=== PATIENT | male | born 1980 | race African-American/Black ===

== ENCOUNTER 2017-02-24 08:47 | Emergency (ER) | payer OTHER ==
[~2017-02-24] VITALS: Ht 180.3 cm; Wt 77.3 kg
[2017-02-24 08:48] VITALS: BP 145/76
[2017-02-24] MEDS ORDERED: BACT800T5 PO (10:22)
[2017-02-24] MEDS ORDERED: ROBA500T PO (10:22)
[2017-02-24] MEDS ORDERED: NAPR500T3 PO (10:22)
--- NOTE | 2017-02-24 10:29 | REP ---
Lumbar spine complete: 02/24/2017. Clinical history: Back pain. Findings: There were no prior studies. Five views show slight loss of the normal lordosis. The vertebral body heights and disc space heights are intact throughout. There is no spondylolysis or spondylolisthesis. No scoliosis on the AP view. Pedicles, spinous and transverse processes, lower thoracic vertebral levels and ribs along with the sacrum, SI joints and sacral foramina intact. Impression: 1. Slight loss of lordosis of the otherwise normal lumbar spine may reflect spasm. No other findings. Signed by Carlos Squires MD 02/24/2017 08:29 P
== END 2017-02-24 10:32 | disposition home or self-care (01) ==
LOC: M ED 08:47
DX: L02.411 Cutaneous abscess of right axilla (principal); M54.5 Low back pain; G89.29 Other chronic pain; M62.830 Muscle spasm of back; M40.56 Lordosis, unspecified, lumbar region; F17.210 Nicotine dependence, cigarettes, uncomplicated; Z98.890 Other specified postprocedural states; Z87.2 Personal history of diseases of the skin and subcutaneous tissue

== ENCOUNTER → 2017-08-18 | Outpatient (CLI) | payer MEDICAID | LOC: M OUTALCOH 13:04 | DX: F12.20 Cannabis dependence, uncomplicated (principal) ==

== ENCOUNTER → 2017-10-07 | Outpatient (CLI) | payer MEDICAID | LOC: M OUTALCOH 09:33 | DX: F12.20 Cannabis dependence, uncomplicated (principal) ==

== ENCOUNTER → 2017-10-18 | Outpatient (RCR) | payer MEDICAID | LOC: M OUTALCOH 10:41 | DX: F12.20 Cannabis dependence, uncomplicated (principal); F17.200 Nicotine dependence, unspecified, uncomplicated ==

== ENCOUNTER 2017-11-15 18:18 | Emergency (ER) | payer OTHER, MEDICAID ==
[2017-11-15] MEDS: CLINDAMYCIN 150 MG CAP PO (20:05)
== END 2017-11-15 20:08 | disposition home or self-care (01) ==
LOC: M ED 18:18
DX: L02.412 Cutaneous abscess of left axilla (principal); L02.211 Cutaneous abscess of abdominal wall; F41.9 Anxiety disorder, unspecified; J30.81 Allergic rhinitis due to animal (cat) (dog) hair and dander; J30.89 Other allergic rhinitis; F17.210 Nicotine dependence, cigarettes, uncomplicated
CPT/HCPCS: 99282

== ENCOUNTER 2018-02-07 12:41 | Emergency (ER) | payer OTHER | END 2018-02-07 13:46 | disposition home or self-care (01) | LOC: M ED 12:41 | DX: B35.3 Tinea pedis (principal); B36.0 Pityriasis versicolor; L73.2 Hidradenitis suppurativa; F17.200 Nicotine dependence, unspecified, uncomplicated; J30.81 Allergic rhinitis due to animal (cat) (dog) hair and dander; J30.1 Allergic rhinitis due to pollen | CPT/HCPCS: 99282 ==

== ENCOUNTER 2018-04-07 13:14 | Emergency (ER) | payer OTHER ==
[~2018-04-07] VITALS: Ht 177.8 cm; Wt 32.9 kg
[~2018-04-07 13:14] MED LIST: BACT800T5 PO; CLEO300C2 PO; DOXY100C37 PO; LOTR1CRE12 TOP; NAPR-885 PO; ROBA500T PO
[2018-04-07 13:15] VITALS: BP 131/80
--- NOTE | 2018-04-07 14:31 | ED PDOC ---
Post-Departure Follow-Up ASSIGNED THIS PT TO MYSELF. BEFORE GETTING IN THE EXAM ROOM TO SEE THE PT, HE WA LKED OUT WITHOUT BEING SEEN BY A PROVIDER. THIS FLOOR LAYER TILE DID NOT SEE OR EVALUATE THIS PT. DAREN JONES PA-C Apr 07, 2018 14:31
== END 2018-04-07 14:39 | disposition left against medical advice (07) ==
LOC: M ED 13:14
DX: Z53.29 Procedure and treatment not carried out because of patient's decision for other reasons (principal)

== ENCOUNTER 2018-04-28 18:44 | Emergency (ER) | payer OTHER ==
[~2018-04-28] VITALS: Ht 177.8 cm; Wt 68.2 kg
[2018-04-28] MEDS ORDERED: NS 1,000 ML IV ONE (19:30)
[2018-04-28 19:51] LABS: BASO % 0.2 % (0.0-1.0); EOS % 0.9 % (0.0-3.0); HEMATOCRIT 40.2 % (42.0-52.0); HEMOGLOBIN 12.8 g/dl (13.5-17.5); LYMPH # 1.7 10^3/uL (1.5-4.5); LYMPH % 38.7 % (24.0-44.0); MEAN CORPUSCULAR HEMOGLOBIN 21.9 pg (27.0-33.0); MEAN CORPUSCULAR HGB CONC 31.8 g/dl (32.0-36.5); MEAN CORPUSCULAR VOLUME 68.8 fl (80.0-96.0); MONO # 0.4 10^3/uL (0.0-0.8); MONO % 9.6 % (0.0-5.0); NEUTROPHILS # 2.3 10^3/uL (1.8-7.7); NEUTROPHILS % 50.4 % (36.0-66.0); PLATELET COUNT, AUTOMATED 204 10^3/uL (150-450); RED BLOOD COUNT 5.84 10^6/uL (4.30-6.10); WHITE BLOOD COUNT 4.5 10^3/uL (4.0-10.0)
[2018-04-28 20:08] LABS: INR 1.06; PARTIAL THROMBOPLASTIN TIME 33.2 SECONDS (25.4-37.6); PROTHROMBIN TIME 13.9 SECONDS (12.1-14.4)
[2018-04-28 20:18] LABS: ALBUMIN 4.3 GM/DL (3.2-5.2); ALT/SGPT 27 U/L (12-78); BILIRUBIN,TOTAL 0.3 MG/DL (0.2-1.0); BLOOD UREA NITROGEN 10 MG/DL (7-18); CALCIUM LEVEL 8.8 MG/DL (8.5-10.1); CARBON DIOXIDE LEVEL 29 MEQ/L (21-32); CHLORIDE LEVEL 108 MEQ/L (98-107); CREATININE FOR GFR 0.94 MG/DL (0.70-1.30); GLOMERULAR FILTRATION RATE > 60.0 (>60); GLUCOSE, FASTING 78 MG/DL (70-100); POTASSIUM SERUM 3.9 MEQ/L (3.5-5.1); SODIUM LEVEL 141 MEQ/L (136-145); TOTAL PROTEIN 8.1 GM/DL (6.4-8.2)
[2018-04-28] MEDS ORDERED: ISOVUE-370 76% 100ML VIAL (Q9967) As Ordered ONE (20:21)
--- NOTE | 2018-04-28 20:59 | REPVR ---
EXAM: CT Abdomen and Pelvis With Contrast EXAM DATE/TIME: 04/28/2018 8:26 PM CLINICAL HISTORY: 38 years old, male; Signs and symptoms; Other: Hematuria; Additional info: Case hematuria, +inguinal lymphnodes TECHNIQUE: Axial computed tomography images of the abdomen and pelvis with intravenous contrast. All CT scans at this facility use at least one of these dose optimization techniques: automated exposure control; mA and/or kV adjustment per patient size (includes targeted exams where dose is matched to clinical indication); or iterative reconstruction. Coronal and sagittal reformatted images were created and reviewed. CONTRAST: 100 ml of ISOVUE 370 administered intravenously. COMPARISON: CR Spine. Lumbosacral, complete 02/24/2017 10:00 AM FINDINGS: Lower thorax: No acute findings. ABDOMEN: Liver: There is a diffuse decrease in hepatic parenchymal density, consistent with fatty infiltration. Gallbladder and bile ducts: The gallbladder is incompletely distended. This is most likely related to incomplete fasting. Clinical correlation to exclude gallbladder pathology suggested. Pancreas: Normal. No ductal dilation. Spleen: Normal. No splenomegaly. Adrenals: Normal. No mass. Kidneys and ureters: Normal. No hydronephrosis. Stomach and bowel: Normal. No obstruction. No mucosal thickening. Appendix: No evidence of appendicitis. PELVIS: Bladder: Unremarkable as visualized. Reproductive: The prostate gland demonstrates moderate hyperplasia. ABDOMEN and PELVIS: Intraperitoneal space: Normal. No free air. No significant fluid collection. Bones/joints: No acute fracture. No dislocation. Soft tissues: Unremarkable. Vasculature: The aorta demonstrates mild atherosclerotic calcification. Lymph nodes: Normal. No enlarged lymph nodes. IMPRESSION: 1. There is a diffuse decrease in hepatic parenchymal density, consistent with fatty infiltration. 2. The gallbladder is incompletely distended. This is most likely related to incomplete fasting. Clinical correlation to exclude gallbladder pathology suggested. 3. Moderate prostatic hyperplasia. 4. No urinary tract calculi or mass. Electronically signed by: Garo Heredia On 04/28/2018 20:59:05 PM
[2018-04-28] MEDS ORDERED: BACT800T5 PO (21:13)
[2018-04-28] MEDS ORDERED: BACTRIM 160MG/800MG DS TAB PO ONE (21:15)
[2018-04-28] MEDS ORDERED: CIPROFLOXACIN 500 MG TAB PO ONE (21:15)
[2018-04-28 21:20] VITALS: BP 114/76
[2018-04-28] MEDS ORDERED: PYRI1TAB5 PO (21:26)
[2018-04-28] MEDS ORDERED: CLOB0.0526 TOP (21:26)
[2018-04-28] MEDS ORDERED: PHENAZOPYRIDINE 100 MG TAB PO ONE (21:30)
== END 2018-04-28 21:35 | disposition home or self-care (01) ==
LOC: M ED 18:44
DX: N39.0 Urinary tract infection, site not specified (principal); R31.9 Hematuria, unspecified; N40.1 Benign prostatic hyperplasia with lower urinary tract symptoms; L02.214 Cutaneous abscess of groin; F41.9 Anxiety disorder, unspecified; F32.9 Major depressive disorder, single episode, unspecified
CPT/HCPCS: 74177; 80053; 81001; 85025; 85610; 85730; 86850; 86900; 86901; 99284; Q9967

== ENCOUNTER 2018-05-05 21:20 | Emergency (ER) | payer OTHER ==
[~2018-05-05] VITALS: Ht 177.8 cm; Wt 77.3 kg
[2018-05-05 21:20] VITALS: BP 139/78
[~2018-05-05 21:20] MED LIST changes: +CLOB0.0526 TOP; +PYRI1TAB5 PO
[2018-05-05] MEDS ORDERED: NORCO 5/325MG TABLET (BULK FOR ED) PO ONE (22:15)
[2018-05-05] MEDS ORDERED: BACTRIM 160MG/800MG DS TAB PO ONE (22:15)
[2018-05-05] MEDS ORDERED: BACT800T5 PO (22:18)
[2018-05-05] MEDS ORDERED: IBUP-1022 PO (22:18)
== END 2018-05-05 22:37 | disposition home or self-care (01) ==
LOC: M ED 21:20
DX: L02.411 Cutaneous abscess of right axilla (principal)

== ENCOUNTER 2018-08-21 08:55 | Emergency (ER) | payer OTHER ==
[~2018-08-21] VITALS: Ht 177.8 cm; Wt 72.4 kg
[~2018-08-21 08:55] MED LIST changes: +IBUP-1022 PO
[2018-08-21 09:58] LABS: BASO % 0.2 % (0.0-1.0); EOS # 0.1 10^3/uL (0.0-0.50); EOS % 1.1 % (0.0-3.0); HEMATOCRIT 38.8 % (42.0-52.0); HEMOGLOBIN 12.4 g/dl (13.5-17.5); LYMPH % 43.1 % (24.0-44.0); MEAN CORPUSCULAR HEMOGLOBIN 22.7 pg (27.0-33.0); MEAN CORPUSCULAR VOLUME 70.9 fl (80.0-96.0); MONO # 0.5 10^3/uL (0.0-0.8); NEUTROPHILS # 2.1 10^3/uL (1.8-7.7); NEUTROPHILS % 44.4 % (36.0-66.0); PLATELET COUNT, AUTOMATED 182 10^3/uL (150-450); RED BLOOD COUNT 5.47 10^6/uL (4.30-6.10); WHITE BLOOD COUNT 4.6 10^3/uL (4.0-10.0)
[2018-08-21 10:04] LABS: INR 1.17; PROTHROMBIN TIME 15.1 SECONDS (12.1-14.4)
[2018-08-21 10:05] LABS: PARTIAL THROMBOPLASTIN TIME 34.8 SECONDS (25.4-37.6)
[2018-08-21 10:15] LABS: ALBUMIN 4.2 GM/DL (3.2-5.2); ALT/SGPT 25 U/L (12-78); BILIRUBIN,DIRECT < 0.1 MG/DL (0.0-0.2); BILIRUBIN,TOTAL 0.2 MG/DL (0.2-1.0); BLOOD UREA NITROGEN 11 MG/DL (7-18); CALCIUM LEVEL 9.3 MG/DL (8.5-10.1); CARBON DIOXIDE LEVEL 26 MEQ/L (21-32); CHLORIDE LEVEL 107 MEQ/L (98-107); CREATININE FOR GFR 0.97 MG/DL (0.70-1.30); GLOMERULAR FILTRATION RATE > 60.0 (>60); GLUCOSE, FASTING 82 MG/DL (70-100); LIPASE 61 U/L (73-393); POTASSIUM SERUM 3.8 MEQ/L (3.5-5.1); SODIUM LEVEL 141 MEQ/L (136-145); TOTAL PROTEIN 7.5 GM/DL (6.4-8.2)
[2018-08-21 10:36] LABS: HEPATITIS B SURFACE ANTIGEN NEGATIVE (NEGATIVE)
[2018-08-21 11:03] LABS: HEPATITIS B CORE ANTIBODY IGM NEGATIVE (NEGATIVE); HEPATITIS C VIRUS ABY INDEX < 0.0 INDEX (<0.8)
[2018-08-21 11:06] LABS: HEPATITIS A ANTIBODY IGM NEGATIVE (NEGATIVE)
--- NOTE | 2018-08-21 11:08 | REP ---
REASON FOR EXAM: Diarrhea. PRIORS: None. Multiple ultrasonographic images of the liver show the hepatic parenchyma to be within normal limits. There are no masses. There is no intrahepatic or extrahepatic or ductal dilatation. The common bile duct measures 3 mm. Multiple ultrasonographic images of the gallbladder show the gallbladder to have a normal appearance. The imaged portion of the pancreas and right kidney were normal. IMPRESSION: Right upper quadrant ultrasound is within normal limits. Electronically Signed by Anselmo East DO 08/21/2018 12:57 P
[2018-08-21] MEDS ORDERED: BACT800T5 PO (11:28)
[2018-08-21] MEDS ORDERED: PRED20TA PO (11:28)
[2018-08-21 11:37] VITALS: BP 118/69
== END 2018-08-21 11:38 | disposition home or self-care (01) ==
LOC: M ED 08:55
DX: R19.7 Diarrhea, unspecified (principal); L29.9 Pruritus, unspecified; L02.412 Cutaneous abscess of left axilla; F41.9 Anxiety disorder, unspecified; F32.9 Major depressive disorder, single episode, unspecified; Z72.0 Tobacco use; J30.81 Allergic rhinitis due to animal (cat) (dog) hair and dander; J30.2 Other seasonal allergic rhinitis

== ENCOUNTER 2018-09-12 07:27 | Emergency (ER) | payer OTHER ==
[~2018-09-12] VITALS: Ht 177.8 cm; Wt 70.8 kg
[~2018-09-12 07:27] MED LIST changes: +PRED20TA PO
[2018-09-12 08:49] LABS: BASO % 0.2 % (0.0-1.0); EOS # 0.1 10^3/uL (0.0-0.50); EOS % 1.4 % (0.0-3.0); HEMATOCRIT 37.1 % (42.0-52.0); HEMOGLOBIN 12.1 g/dl (13.5-17.5); LYMPH # 1.4 10^3/uL (1.5-4.5); LYMPH % 27.5 % (24.0-44.0); MEAN CORPUSCULAR HEMOGLOBIN 22.4 pg (27.0-33.0); MEAN CORPUSCULAR HGB CONC 32.6 g/dl (32.0-36.5); MEAN CORPUSCULAR VOLUME 68.8 fl (80.0-96.0); MONO # 0.5 10^3/uL (0.0-0.8); MONO % 10.3 % (0.0-5.0); NEUTROPHILS % 60.4 % (36.0-66.0); PLATELET COUNT, AUTOMATED 181 10^3/uL (150-450); RED BLOOD COUNT 5.39 10^6/uL (4.30-6.10)
[2018-09-12 09:28] LABS: ALBUMIN 3.7 GM/DL (3.2-5.2); ALT/SGPT 26 U/L (12-78); BILIRUBIN,DIRECT 0.1 MG/DL (0.0-0.2); BILIRUBIN,TOTAL 0.2 MG/DL (0.2-1.0); BLOOD UREA NITROGEN 11 MG/DL (7-18); CALCIUM LEVEL 8.9 MG/DL (8.5-10.1); CARBON DIOXIDE LEVEL 26 MEQ/L (21-32); CHLORIDE LEVEL 108 MEQ/L (98-107); CREATININE FOR GFR 0.98 MG/DL (0.70-1.30); GLOMERULAR FILTRATION RATE > 60.0 (>60); GLUCOSE, FASTING 79 MG/DL (70-100); LIPASE 71 U/L (73-393); POTASSIUM SERUM 4.2 MEQ/L (3.5-5.1); SODIUM LEVEL 139 MEQ/L (136-145); TOTAL PROTEIN 7.2 GM/DL (6.4-8.2)
[2018-09-12] MEDS ORDERED: PRED20TA PO (09:55)
[2018-09-12] MEDS ORDERED: BACT800T5 PO (09:55)
[2018-09-12 10:10] VITALS: BP 122/68
== END 2018-09-12 10:13 | disposition home or self-care (01) ==
LOC: M ED 07:27
DX: L73.2 Hidradenitis suppurativa (principal); R19.7 Diarrhea, unspecified; F17.210 Nicotine dependence, cigarettes, uncomplicated

== ENCOUNTER → 2018-09-15 | Outpatient (REF) | payer OTHER ==
[2018-09-15 18:07] LABS: CHOLESTEROL LEVEL 99 MG/DL (<200); CHOLESTEROL RISK RATIO 2.538 (<5); FERRITIN 75 NG/ML (26-388); HDL CHOLESTEROL 39 MG/DL (>40); IRON (FE) 73 UG/DL (65-175); LDL CHOLESTEROL 47 MG/DL (<100); NON-HDL-C 60 MG/DL; PERCENT SATURATION 24.7 % (19.7-50.0); TOTAL IRON BINDING CAPACITY 296 UG/DL (250-450); TRIGLYCERIDES LEVEL 63 MG/DL (<150)
[2018-09-15 18:45] LABS: SICKLE CELL SCREEN POSITIVE (NEGATIVE)
[2018-09-15 18:48] LABS: HIV 1&2 SCREEN CENTAUR NEGATIVE (NEGATIVE)
[2018-09-15 20:51] LABS: CHLAMYDIA DNA AMPLIFICATION NEGATIVE (NEGATIVE); GC DNA AMPLIFICATION NEGATIVE (NEGATIVE)
[2018-09-19 08:07] LABS: RPR Non Reactive (Non Reactive)
== END ==
LOC: M SFHCPLAZ 15:15
PROVIDERS: ATTEND Nurse Practitioner Family
DX: D64.9 Anemia, unspecified (principal); Z11.3 Encounter for screening for infections with a predominantly sexual mode of transmission; Z13.228 Encounter for screening for other metabolic disorders

== ENCOUNTER 2019-01-25 21:55 | Emergency (ER) | payer OTHER ==
[~2019-01-25] VITALS: Ht 177.8 cm; Wt 79.1 kg
[2019-01-25] MEDS ORDERED: AMOX500C PO (22:01)
[2019-01-25] MEDS ORDERED: IBUP1TAB7 PO (22:02)
[2019-01-25] MEDS ORDERED: LIDOCAINE W/EPINEPHRINE 1% 20ML VIAL SC ONE (23:00)
[2019-01-25] MEDS ORDERED: BACT800T5 PO (23:50)
[2019-01-26] MEDS ORDERED: IBUP80TA PO (00:01)
[2019-01-26 00:08] LABS: BASO % 0.2 % (0.0-1.0); EOS # 0.1 10^3/uL (0.0-0.5); EOS % 1.4 % (0.0-3.0); HEMATOCRIT 33.6 % (42.0-52.0); HEMOGLOBIN 10.8 g/dl (13.5-17.5); LYMPH # 1.4 10^3/uL (1.5-5.0); LYMPH % 23.5 % (24.0-44.0); MEAN CORPUSCULAR HEMOGLOBIN 22.5 pg (27.0-33.0); MEAN CORPUSCULAR HGB CONC 32.1 g/dl (32.0-36.5); MEAN CORPUSCULAR VOLUME 69.9 fl (80.0-96.0); MONO # 0.6 10^3/uL (0.0-0.8); MONO % 10.7 % (0.0-5.0); NEUTROPHILS # 3.8 10^3/uL (1.5-8.5); NEUTROPHILS % 63.7 % (36.0-66.0); PLATELET COUNT, AUTOMATED 186 10^3/uL (150-450); RED BLOOD COUNT 4.81 10^6/uL (4.30-6.10); WHITE BLOOD COUNT 5.9 10^3/uL (4.0-10.0)
[2019-01-26 00:15] VITALS: BP 132/85
== END 2019-01-26 00:35 | disposition home or self-care (01) ==
LOC: M ED 21:55
DX: L02.412 Cutaneous abscess of left axilla (principal)

== ENCOUNTER 2019-03-16 22:25 | Emergency (ER) | payer OTHER ==
[~2019-03-16] VITALS: Ht 180.3 cm; Wt 76.5 kg
[~2019-03-16 22:25] MED LIST changes: +AMOX500C PO; +IBUP1TAB7 PO; +IBUP80TA PO
[2019-03-17] MEDS ORDERED: ACETAMINOPHEN TAB 650MG DOSE (2X325MG) PO ONE (00:15)
[2019-03-17 00:33] LABS: BASO % 0.1 % (0.0-1.0); EOS % 0.3 % (0.0-3.0); HEMATOCRIT 40.6 % (42.0-52.0); HEMOGLOBIN 12.7 g/dl (13.5-17.5); LYMPH # 1.5 10^3/uL (1.5-5.0); MEAN CORPUSCULAR HEMOGLOBIN 21.9 pg (27.0-33.0); MEAN CORPUSCULAR HGB CONC 31.3 g/dl (32.0-36.5); MEAN CORPUSCULAR VOLUME 69.9 fl (80.0-96.0); MONO # 0.8 10^3/uL (0.0-0.8); NEUTROPHILS % 75.2 % (36.0-66.0); PLATELET COUNT, AUTOMATED 226 10^3/uL (150-450); RED BLOOD COUNT 5.81 10^6/uL (4.30-6.10); WHITE BLOOD COUNT 9.3 10^3/uL (4.0-10.0)
[2019-03-17] MEDS ORDERED: ISOVUE-370 76% 100ML VIAL (Q9967) As Ordered ONE (00:37)
[2019-03-17 00:54] LABS: ERYTHROCYTE SEDIMENTATION RATE 18 mm/hr (0-15)
--- NOTE | 2019-03-17 01:20 | REPVR ---
PROCEDURE INFORMATION: Exam: CT Pelvis With Contrast Exam date and time: 03/17/2019 12:03 AM Age: 39 years old Clinical indication: Pelvic pain; Additional info: R/O perirectal abscess TECHNIQUE: Imaging protocol: Computed tomography images of the pelvis with intravenous contrast. Radiation optimization: All CT scans at this facility use at least one of these dose optimization techniques: automated exposure control; mA and/or kV adjustment per patient size (includes targeted exams where dose is matched to clinical indication); or iterative reconstruction. Contrast material: ISO; Contrast volume: 100 ml; Contrast route: AC COMPARISON: CT ABD/PEL W/IV CONTRAST ONLY 04/28/2018 8:19 PM FINDINGS: Immediately adjacent to the left gluteal fold posteriorly, there is a peripherally enhancing ovoid fluid collection measuring 5 cm AP, 2 cm transverse and 4 cm craniocaudal consistent with a superficial perirectal abscess. No extension into the ischiorectal fossa. Mild overlying subcutaneous edema and skin thickening. Gluteal muscular structures show no involvement. Normal caliber appendix is identified, with no adjacent inflammation. Urinary bladder appears normal. Small nonspecific inguinal lymph nodes are present. Bony structures show no acute fracture or destructive process. Incidental, benign bone island in the medial osseous left ilium, stable compared to lumbar spine radiographs from February 2017, as expected IMPRESSION: Left gluteal fold superficial perirectal abscess measuring 5 x 2 x 4 cm Electronically signed by: Gavino Soriano On 03/17/2019 01:19:41 AM
[2019-03-17 02:06] VITALS: BP 124/75
[2019-03-17] MEDS ORDERED: LIDOCAINE W/EPINEPHRINE 1% 20ML VIAL SC ONE (02:30)
[2019-03-17] MEDS ORDERED: IBUP80TA PO (03:00)
[2019-03-17] MEDS ORDERED: BACT800T5 PO (03:00)
== END 2019-03-17 03:21 | disposition home or self-care (01) ==
LOC: M ED 22:25
DX: L02.31 Cutaneous abscess of buttock (principal); A49.02 Methicillin resistant Staphylococcus aureus infection, unspecified site; F17.210 Nicotine dependence, cigarettes, uncomplicated
CPT/HCPCS: 10060; 36415; 72193; 80047; 85025; 85652; 86140; 87040; 87070; 87077; 87186; 87205; 99283; Q9967

== ENCOUNTER 2020-11-19 02:30 | Emergency (ER) | payer OTHER ==
[~2020-11-19] VITALS: Ht 177.8 cm; Wt 71.8 kg
[~2020-11-19 02:30] MED LIST changes: +DOXY-443 PO; -DOXY100C37 PO
[2020-11-19] MEDS ORDERED: IBUP200C25 PO (02:59)
[2020-11-19 06:01] VITALS: BP 141/87
[2020-11-19 07:11] LABS: HEMATOCRIT 36.7 % (42.0-52.0); HEMOGLOBIN 11.9 g/dl (13.5-17.5); MEAN CORPUSCULAR HEMOGLOBIN 22.3 pg (27.0-33.0); MEAN CORPUSCULAR HGB CONC 32.4 g/dl (32.0-36.5); MEAN CORPUSCULAR VOLUME 68.7 fl (80.0-96.0); PLATELET COUNT, AUTOMATED 197 10^3/uL (150-450); RED BLOOD COUNT 5.34 10^6/uL (4.30-6.10); WHITE BLOOD COUNT 5.2 10^3/uL (4.0-10.0)
[2020-11-19 07:37] LABS: ATYPICAL LYMPH 2 % (0-5); EOSINOPHILS 1 % (0-3); LYMPHOCYTES 32 % (16-44); MONOCYTES 8 % (0-5); NEUTROPHILS 57 % (28-66)
[2020-11-19 07:38] LABS: PLATELET ESTIMATE NORMAL (NORMAL)
[2020-11-19 07:39] LABS: OVALOCYTES 1+
[2020-11-19 07:52] LABS: ALBUMIN 3.9 GM/DL (3.2-5.2); ALT/SGPT 29 U/L (12-78); BILIRUBIN,DIRECT 0.2 MG/DL (0.0-0.2); BILIRUBIN,TOTAL 0.4 MG/DL (0.2-1.0); BLOOD UREA NITROGEN 8 MG/DL (7-18); CALCIUM LEVEL 9.2 MG/DL (8.5-10.1); CARBON DIOXIDE LEVEL 25 MEQ/L (21-32); CHLORIDE LEVEL 109 MEQ/L (98-107); CK-MB VALUE MASS 1.8 NG/ML (<3.6); CPK CREATINE PHOSPHOKINASE 131 U/L (39-308); CREATININE FOR GFR 0.78 MG/DL (0.70-1.30); FREE T4 1.46 NG/DL (0.76-1.46); GLOMERULAR FILTRATION RATE > 60.0 (>60); GLUCOSE, FASTING 72 MG/DL (70-100); LIPASE 94 U/L (73-393); MB/CK RELATIVE INDEX 1.37 (< OR =4); SODIUM LEVEL 140 MEQ/L (136-145); TOTAL PROTEIN 7.2 GM/DL (6.4-8.2); TROPONIN I < 0.02 NG/ML (< 0.10)
[2020-11-19 08:34] LABS: ERYTHROCYTE SEDIMENTATION RATE 6 mm/hr (0-15)
== END 2020-11-19 07:29 | disposition left against medical advice (07) ==
LOC: M ED 02:30
DX: R07.9 Chest pain, unspecified (principal); Z53.9 Procedure and treatment not carried out, unspecified reason; F41.9 Anxiety disorder, unspecified; F32.9 Major depressive disorder, single episode, unspecified; Z87.891 Personal history of nicotine dependence; J30.81 Allergic rhinitis due to animal (cat) (dog) hair and dander; J30.89 Other allergic rhinitis

== ENCOUNTER → 2021-11-30 | Outpatient (REF) | payer OTHER ==
[~2021-11-30] MED LIST changes: +IBUP200C25 PO
== END ==
LOC: M LAB REF 16:34
PROVIDERS: ATTEND Nurse Practitioner Family
DX: J02.9 Acute pharyngitis, unspecified (principal)

== ENCOUNTER → 2022-11-19 | Outpatient (CLI) | payer OTHER | LOC: M RAD 17:18 | PROVIDERS: ATTEND Physician Assistant | DX: M25.571 Pain in right ankle and joints of right foot (principal) ==

== ENCOUNTER 2023-01-18 20:40 | Emergency (ER) | payer OTHER ==
[~2023-01-18] VITALS: Ht 179.1 cm; Wt 76.7 kg
[2023-01-18] MEDS ORDERED: FLUORESCEIN OPHTH 1MG STRIP OS ONE (22:15)
[2023-01-18] MEDS ORDERED: TETRACAINE 0.5% OPHTH SOLN 4ML OS ONE (22:15)
[2023-01-18 22:57] VITALS: BP 116/76; TEMP 98.2; O2SAT 96
[2023-01-18] MEDS ORDERED: CIPR0.3S37 OS (23:05)
[2023-01-18] MEDS ORDERED: CIPROFLOXACIN 0.3% OPHTH SOLN 2.5ML OS ONE (23:05)
[2023-01-18] MEDS ORDERED: IBUPROFEN 600MG TAB PO ONE (23:35)
== END 2023-01-19 00:24 | disposition home or self-care (01) ==
LOC: M ED 20:40
DX: S05.02XA Injury of conjunctiva and corneal abrasion without foreign body, left eye, initial encounter (principal); W22.8XXA Striking against or struck by other objects, initial encounter; Y92.009 Unspecified place in unspecified non-institutional (private) residence as the place of occurrence of the external cause; F41.9 Anxiety disorder, unspecified; F32.A Depression, unspecified; F17.290 Nicotine dependence, other tobacco product, uncomplicated; F12.10 Cannabis abuse, uncomplicated

== ENCOUNTER 2023-02-14 23:32 | Emergency (ER) | payer OTHER ==
[~2023-02-14] VITALS: Ht 180.3 cm; Wt 72.7 kg
[~2023-02-14 23:32] MED LIST changes: +CIPR0.3S37 OS
[2023-02-15] MEDS ORDERED: CEPHALEXIN 500 MG CAP PO ONE (01:45)
[2023-02-15] MEDS ORDERED: CEPH500C PO (01:47)
[2023-02-15 01:53] VITALS: BP 159/98; TEMP 97.6; O2SAT 100
== END 2023-02-15 01:54 | disposition home or self-care (01) ==
LOC: M ED 23:32
DX: S90.851A Superficial foreign body, right foot, initial encounter (principal); X58.XXXA Exposure to other specified factors, initial encounter; Y92.9 Unspecified place or not applicable; Y93.9 Activity, unspecified; Y99.9 Unspecified external cause status; J30.81 Allergic rhinitis due to animal (cat) (dog) hair and dander; J30.89 Other allergic rhinitis

== ENCOUNTER → 2023-05-05 | Outpatient (REF) | payer OTHER ==
[~2023-05-05] MED LIST changes: +CEPH500C PO
[2023-05-05 19:17] LABS: BASO % 0.4 % (0.0-1.0); EOS # 0.1 10^3/uL (0.0-0.5); EOS % 1.1 % (0.0-3.0); HEMATOCRIT 39.9 % (42.0-52.0); HEMOGLOBIN 12.9 g/dl (13.5-17.5); LYMPH # 1.7 10^3/uL (1.5-5.0); LYMPH % 37.5 % (24.0-44.0); MEAN CORPUSCULAR HEMOGLOBIN 22.8 pg (27.0-33.0); MEAN CORPUSCULAR HGB CONC 32.3 g/dl (32.0-36.5); MEAN CORPUSCULAR VOLUME 70.5 fl (80.0-96.0); MONO # 0.5 10^3/uL (0.0-0.8); MONO % 10.3 % (2.0-8.0); NEUTROPHILS # 2.2 10^3/uL (1.5-8.5); NEUTROPHILS % 50.5 % (36.0-66.0); PLATELET COUNT, AUTOMATED 235 10^3/uL (150-450); RED BLOOD COUNT 5.66 10^6/uL (4.30-6.10); WHITE BLOOD COUNT 4.5 10^3/uL (4.0-10.0)
[2023-05-05 19:30] LABS: HEMOGLOBIN A1c 5.3 % (4.0-6.0)
[2023-05-05 19:53] LABS: ALBUMIN 4.1 G/DL (3.2-5.2); ALKALINE PHOSPHATASE 100 U/L (46-116); ALT/SGPT 30 U/L (7.0-40); AST/SGOT 22 U/L (<34); BILIRUBIN,TOTAL 0.3 MG/DL (0.3-1.2); BLOOD UREA NITROGEN 16 MG/DL (9-23); CALCIUM LEVEL 8.9 MG/DL (8.5-10.1); CARBON DIOXIDE LEVEL 28 MMOL/L (20-31); CHLORIDE LEVEL 108 MMOL/L (98-107); CHOLESTEROL LEVEL 131 MG/DL (<200); CHOLESTEROL RISK RATIO 3.04 (<5); CREATININE FOR GFR 0.91 MG/DL (0.70-1.30); GLOMERULAR FILTRATION RATE > 60.0 (>60); GLUCOSE, FASTING 72 MG/DL (60-100); LDL CHOLESTEROL 71.2 MG/DL (<100); MAGNESIUM LEVEL 1.7 MG/DL (1.8-2.4); POTASSIUM SERUM 4.7 MMOL/L (3.5-5.1); SODIUM LEVEL 140 MMOL/L (136-145); TOTAL PROTEIN 7.4 G/DL (5.7-8.2); TRIGLYCERIDES LEVEL 84 MG/DL (<150)
[2023-05-05 19:56] LABS: THYROID STIMULATING HORMONE 1.693 uIU/ML (0.55-4.78); TOTAL 25(OH) VITAMIN D 7.4 NG/ML (20.0-100.0)
== END ==
LOC: M LAB REF 18:31
PROVIDERS: ATTEND Nurse Practitioner Family
DX: E66.3 Overweight (principal); E55.9 Vitamin D deficiency, unspecified